=== PATIENT | male | born 1985 | race African-American/Black ===

== ENCOUNTER 2018-04-29 18:43 | Emergency (ER) | payer MEDICAID, OTHER ==
[~2018-04-29] VITALS: Ht 185.4 cm; Wt 83.9 kg
[~2018-04-29 18:43] MED LIST: PREDNISONE20 MG ORAL
[2018-04-29] MEDS ORDERED: ASACOL PO (18:51)
[2018-04-29] MEDS ORDERED: Norco 5mg/325mg tab ORAL ONE (19:00)
[2018-04-29] MEDS ORDERED: Lidocaine 1% Plain 30 ml INJ ONE (19:00)
[2018-04-29] MEDS ORDERED: Bacitracin Oint UD TOPIC ONE (19:00)
--- NOTE | 2018-04-29 19:16 | Emergency Room Report ---
History of Present Illness General Chief Complaint: General Complaint Source: Patient Present Illness HPI 32-year-old male patient presents ER complaining of right big toe pain. Reports he dropped a TV on his foot forward scope. Reports was previously seen by and had x-ray performed, states there is no fracture at that time. Reports informed him that toenail would fall off on its own eventually, but if pain increased reports to ER to have them remove the toenail. Patient requesting toenail to be removed. Denies pain with ambulation. Patient also requesting cough for the past 3 days. Denies history of smoking, states he interacts with people who smoke regularly. Reports sputum and cough, denies hemoptysis. Denies fever. Denies other acute symptoms. Denies chest pain, shortness of breath, abdominal pain. Allergies: Coded Allergies: IODINE (Verified Allergy, Mild, 06/06/15) SHELLFISH DERIVED (Verified Allergy, Mild, 06/06/15) Patient History Past Medical History: see triage record Reviewed Nursing Documentation: PMH: Agreed; PSxH: Agreed Nursing Documentation-PMH Past Medical History: No History, Except For Hx Gastrointestinal Problems: Yes - Crohn's Review of Systems All Other Systems: negative except mentioned in HPI Physical Exam Vital Signs Date Time Temp Pulse Resp B/P (MAP) Pulse Ox O2 Delivery O2 Flow Rate FiO2 04/29/18 18:46 98.4 72 17 142/87 97 Room Air 98.4 Sp02 EP Interpretation: reviewed, normal General Appearance: well appearing, no apparent distress, alert, GCS 15, non- toxic Head: normocephalic, atraumatic Eyes: bilateral eye normal inspection, bilateral eye PERRL ENT: hearing grossly normal, normal pharynx, no angioedema, normal voice, uvula midline, moist mucus membranes Neck: full range of motion Respiratory: lungs clear, normal breath sounds, no rhonchi, no respiratory distress, no accessory muscle use, no wheezing, speaking full sentences Cardiovascular #1: regular rate, rhythm, no edema Cardiovascular #2: 2+ dorsalis pedis (R), 2+ dorsalis pedis (L) Musculoskeletal: back normal, gait/station normal, normal range of motion, non- tender, other - right big toe: partial nail avulsion, no nail bed damage; no swelling or erythema, tender Neurologic: alert, oriented x3, responsive, motor strength/tone normal, sensory intact Procedures Additional Procedure Procedure Narrative Toe nail removal: Patient provided verbal consent for procedure. Right toenail removal. toenail pulse, attached on medial border. Area cleaned and prepped with Betadine. Digital block performed with lidocaine without epinephrine. Toenail removed with hemostat. Toenail bed cleaned. Nail bed covered with bacitracin, Xeroform and sterile dressing. Patient tolerated procedure well without difficulty. no complications. Medical Decision Making PA Attestation Dr. Beasley is my supervising Physician whom patient management has been discussed with. Diagnostic Impression: Primary Impression: Nail avulsion, toe Additional Impression: Cough ER Course Pt presents to ED c/o toe pain and cough. DDX considered but are not limited to subungual hematoma, nail avulsion, paronychia, viral URI, pneumonia, strep throat, rhinitis, sinusitis, otitis media. Low suspicion for pneumonia, will not order CXR at this time. VITAL SIGNS are WNL, patient is afebrile. ER COURSE: Provided with [employer]. CURES reviewed, no recent rx provided to patient. digital block performed of right big toe, area cleaned and prepped with Betadine , nail removed, no laceration of nail bed noted. . Patient tolerated this procedure well without difficulty. patient dressed with bacitracin, Xeroform and sterile gauze dressing. Patient able ambulate without difficulty. Instructed patient to keep area clean and dry. Provide patient with contact information for barber apprentice Dr. Jameson, instructed to follow-up in one week. provide patient with antibiotic treatment to prevent infection. keep foot elevated, wear open toe shoes. Lungs clear to auscultation, no wheezes, rhonci or rales. Likely viral etiology of symptoms. Symptomatic treatment. Followup with PCP for further treatment and/or referral as needed. DISCHARGE: -Rx given for Tylenol/Acetaminophen -Rx given for Promethazine with codeine syrup for cough sx. -Rx provided for Keflex At this time pt is stable for d/c to home. Patient is resting comfortably, in no acute distress, nontoxic appearing. Patient to take medications as instructed Will provide with patient care instructions and any necessary prescriptions. Care plan and follow-up instructions provided. Patient instructed to follow-up with primary care provider in 3 - 5 days. Patient questions asked and answered. Patient reports understanding and agreement to treatment plan. ER precautions given. Patient instructed to return to ER immediately for any new or worsening of symptoms including but not limited to increasing SOB, persistent fever, intractable vomiting. - Please note that this Emergency Department Report was dictated using [employer] project manager technology software, occasionally this can lead to erroneous entry secondary to interpretation by the dictation equipment. Last Vital Signs Date Time Temp Pulse Resp B/P (MAP) Pulse Ox O2 Delivery O2 Flow Rate FiO2 04/29/18 18:46 98.4 72 17 142/87 97 Room Air 98.4 Disposition: HOME, SELF-CARE Condition: Stable Scripts Acetaminophen* (TYLENOL EXTRA STRENGTH*) 500 Mg Tablet 500 MG ORAL Q8H PRN for Prn Headache/Temp > 101, #30 TAB 0 Refills Prov: Abner Oleary 04/29/18 Codeine/Promethazine Hcl* (PROMETHAZINE-CODEINE SYRUP*) 118 Ml Syrup 5 ML ORAL Q6H PRN for For Cough, #118 ML 0 Refills Prov: Abner Oleary 04/29/18 Cephalexin* (KEFLEX*) 500 Mg Capsule 500 MG ORAL EVERY 12 HOURS, #14 CAP 0 Refills Prov: Abner Oleary 04/29/18 [facility],REFERRING (PCP) Patient Instructions: Cough, Adult, [id number], Nail Avulsion Additional Instructions: Followup with primary care provider in 3 -5 days. Follow-up with barber apprentice in 1 week. Keep wound clean and dry. Take medications as directed. Patient questions asked and answered. ER precautions given, patient instructed to return to ER immediately for any new or worsening of symptoms including but not limited to pain worsening, increased redness, pus is present, red streak develops, fever. Abner Oleary Apr 29, 2018 19:16
[2018-04-29] MEDS ORDERED: CEPHALEXIN500 MG ORAL (20:08)
[2018-04-29] MEDS ORDERED: PROMETHAZINE-C118 M1 ORAL (20:08)
[2018-04-29] MEDS ORDERED: TYLENOL EXTRA500 MG ORAL (20:08)
[2018-04-29 20:30] VITALS: BP 138/82
[2018-04-29 20:35] VITALS: BP 138/82
== END 2018-04-29 20:35 | disposition home or self-care (01) ==
LOC: EMR 19:04
DX: S91.201A Unspecified open wound of right great toe with damage to nail, initial encounter (principal); W20.8XXA Other cause of strike by thrown, projected or falling object, initial encounter; Y92.9 Unspecified place or not applicable; R05 Cough; Z91.041 Radiographic dye allergy status; Z91.013 Allergy to seafood
CPT/HCPCS: 11730; 99284; Z7502

== ENCOUNTER 2020-04-20 12:45 | Emergency (ER) | payer MEDICAID, OTHER ==
[~2020-04-20] VITALS: Ht 185.4 cm; Wt 83.9 kg
[~2020-04-20 12:45] MED LIST changes: +ASACOL PO; +CEPHALEXIN500 MG ORAL; +PROMETHAZINE-C118 M1 ORAL; +TYLENOL EXTRA500 MG ORAL
[2020-04-20 13:10] VITALS: BP 113/65
--- NOTE | 2020-04-20 13:10 | NUR ---
ED Nurse Note: Patient walked into ED from home c/o 05/20 throbbing headache x 3 days. Patient states he had a brain tumor that was surgically removed when he was younger and that he is concerned because the headache is near the old tumor sites in his head. Patient also feel intermittent nausea and difficulty sleeping d/t throbbing sensation when he lays flat. Patient AxO x 4, lights dimmed for comfort.
[2020-04-20] MEDS ORDERED: SUMAtriptan 6mg/0.5ml Inj SUBQ PRN (13:30)
[2020-04-20] MEDS ORDERED: Excedrin Migraine tab ORAL ONE (13:30)
--- NOTE | 2020-04-20 15:08 | Emergency Room Report ---
History of Present Illness General Chief Complaint: Headache Source: Patient Present Illness HPI 34-year-old male with history of migraine headache as well as left temporal and frontal brain tumor here complaining of sudden onset of a 1010 headache left temporal and frontal lobe that started last night. Patient also complains of photophobia, nausea and vomiting. Denies dizziness, having any aura, chest pain , shortness of breath, URI symptoms. Denies tobacco smoke, drug use, alcohol intake. Reports that he had a brain tumor at age 17 however has not seen his neurologist since he turned 22. Denies any recent head injury. Denies recurrences of headache. Patient is neurovascularly intact. No unilateral generalized weakness noted. Allergies: Coded Allergies: IODINE (Verified Allergy, Mild, 06/06/15) SHELLFISH DERIVED (Verified Allergy, Mild, 06/06/15) COVID-19 Screening Contact w/high risk pt: No Recent Travel to affected area: No Experienced COVID-19 symptoms?: No COVID-19 Testing performed TUBE DRAWING SUPERVISOR: No Patient History Past Medical History: see triage record Past Surgical History: none Pertinent Family History: none Immunizations: UTD Reviewed Nursing Documentation: PMH: Agreed; PSxH: Agreed Nursing Documentation-PMH Past Medical History: No History, Except For Hx Gastrointestinal Problems: Yes - Crohn's disease Review of Systems All Other Systems: negative except mentioned in HPI Physical Exam Vital Signs Date Time Temp Pulse Resp B/P (MAP) Pulse Ox O2 Delivery O2 Flow Rate FiO2 04/20/20 13:00 98.1 67 14 113/65 (81) 96 Room Air Sp02 EP Interpretation: reviewed, normal General Appearance: alert, non-toxic, mild distress Head: normocephalic, atraumatic Eyes: bilateral eye normal inspection, bilateral eye PERRL ENT: hearing grossly normal, normal pharynx, no angioedema, normal voice Neck: full range of motion, supple/symm/no masses Respiratory: chest non-tender, lungs clear, normal breath sounds, speaking full sentences Cardiovascular #1: regular rate, rhythm, no edema, no murmur Cardiovascular #2: 2+ carotid (R), 2+ carotid (L) Gastrointestinal: normal bowel sounds, non tender, soft, non-distended, no guarding, no rebound Rectal: deferred Genitourinary: no CVA tenderness Musculoskeletal: back normal, no calf tenderness Neurologic: alert, motor strength/tone normal, oriented x3, sensory intact, responsive, speech normal Psychiatric: judgement/insight normal, memory normal, mood/affect normal, no suicidal/homicidal ideation Skin: no rash Lymphatic: no adenopathy Medical Decision Making PA Attestation All diagnoses and treatment plans were reviewed and discussed with my supervising physician Dr. Gifford Diagnostic Impression: Primary Impression: Migraine headache ER Course 34-year-old male with history of migraine headache as well as left temporal and frontal brain tumor here complaining of sudden onset of a 1010 headache left temporal and frontal lobe that started last night. Patient also complains of photophobia, nausea and vomiting. Denies dizziness, having any aura, chest pain , shortness of breath, URI symptoms. Denies tobacco smoke, drug use, alcohol intake. Reports that he had a brain tumor at age 17 however has not seen his neurologist since he turned 22. Denies any recent head injury. Denies recurrences of headache. Patient is neurovascularly intact. No unilateral generalized weakness noted. Ddx considered but are not limited to: Migraine headache with aura, migraine headache without aura, tension headache, cluster headache, TBI, subarachnoid hemorrhage, brain tumor, head contusion, cerebral hematoma Vital signs: are WNL, pt. is afebrile H&PE are most consistent with:Migraine headache ORDERS: Head CT no contrast, sumatriptan, Zofran, Excedrin ER intervention: Sumatriptan, Excederin, Zofran DISCHARGE: At this time pt. is stable for d/c to home. Will provide printed patient care instructions, and any necessary prescriptions. Care plan and follow up instructions have been discussed with the patient prior to discharge. Patient follow-up primary doctor for referral to neurologist, take medication as directed, if worsening symptoms return to the emergency room CT/MRI/US Diagnostic Results CT/MRI/US Diagnostic Results : Imaging Test Ordered: Head CT no contrast Impression No intracranial bleed or mass noted Last Vital Signs Date Time Temp Pulse Resp B/P (MAP) Pulse Ox O2 Delivery O2 Flow Rate FiO2 04/20/20 13:10 98.1 81 14 113/65 96 Room Air Disposition: HOME, SELF-CARE Condition: Stable Scripts Ondansetron (Zofran) 4 Mg Tablet 4 MG ORAL Q6H PRN for Nausea & Vomiting, #14 TAB Prov: Sahelimoghavami,Nahal PA 04/20/20 Aspirin/Acetaminophen/Caffeine (EXCEDRIN EXTRA STRENGTH CAPLET) 1 Each Tablet 1 EACH PO DAILY, #10 TAB Prov: Josué Bacon 04/20/20 Sumatriptan Succinate* (IMITREX*) 50 Mg Tablet 25 MG ORAL DAILY PRN MIGRAINE for 7 Days, #7 TAB Prov: Josué Bacon 04/20/20 Referrals: [facility],REFERRING (PCP) Patient Instructions: Migraine Headache Additional Instructions: Take medication as directed, follow-up with your primary doctor, follow-up with your neurologist as well for further evaluation. If worsening symptoms return to the emergency room Josué Bacon Apr 20, 2020 15:08
--- NOTE | 2020-04-20 15:10 | Diagnostic Imaging Report ---
Indications: 7 out of 10 throbbing headache for 3 days Technique: Spiral acquisitions obtained through the brain. Angled axial and coronal 5 x 5 mm slices were reconstructed. Total dose length product 1045 mGycm. CTDI vol(s) 53 mGy. Dose reduction achieved using automated exposure control Comparison: None. Findings: No acute intracranial hemorrhage or edema. No mass effect nor midline shift. Normal pardo-white differentiation. Normal size ventricles and extra axial CSF spaces. Visualized orbits and sinuses are unremarkable. The mastoids are clear. The calvarium is intact Note that patient reports history of prior surgical brain tumor removal. There is questionably some low-attenuation of the parasagittal frontal lobe extending from the roof of the corpus callosum to the vertex, although suspect that this is due to beam hardening artifact. No other encephalomalacia is evident. No cranial defect There is very slight nonspecific irregularity of the posterior aspect of the sella turcica. Impression: Negative for acute intracranial bleed or mass effect. Findings as noted The CT scanner at [facility] is accredited by the [employer] and the scans are performed using protocols designed to limit radiation exposure to as low as reasonably achievable to attain images of sufficient resolution adequate for diagnostic evaluation.
[2020-04-20] MEDS ORDERED: IMITREX50 MG ORAL (15:20)
[2020-04-20] MEDS ORDERED: ZOFRAN4 M1 ORAL (15:20)
[2020-04-20] MEDS ORDERED: EXCEDRIN EXTRA1 EAC1 PO (15:20)
[2020-04-20 15:50] VITALS: BP 113/65
--- NOTE | 2020-04-20 15:50 | NUR ---
ER DISCHARGE NOTE: Patient is cleared to be discharged per ERMD, pt is aox4, on room air, with stable vital signs. pt was given dc and prescription instructions, pt was able to verbalize understanding, pt id band removed. pt is able to ambulate with steady gait. pt took all belongings. Addendum: 04/20/20 at 1601 by BRYAN DC time is actually 1525, not 1550
== END 2020-04-20 15:25 | disposition home or self-care (01) ==
LOC: EMR 13:11
DX: G43.909 Migraine, unspecified, not intractable, without status migrainosus (principal); K50.90 Crohn's disease, unspecified, without complications; Z91.041 Radiographic dye allergy status; Z91.013 Allergy to seafood
CPT/HCPCS: 70450; 96372; J2405; J3030; Z7502; 99284

== ENCOUNTER 2020-07-29 18:06 | Emergency (ER) | payer OTHER ==
[~2020-07-29] VITALS: Ht 185.4 cm; Wt 83.9 kg
[~2020-07-29 18:06] MED LIST changes: +EXCEDRIN EXTRA1 EAC1 PO; +IMITREX50 MG ORAL; +ZOFRAN4 M1 ORAL
[2020-07-29] MEDS ORDERED: Ketorolac 30mg Inj IV ONE (18:30)
[2020-07-29] MEDS ORDERED: Morphine Sulfate 4mg/ml Inj (IV USE ONLY) IVP ONE (18:45)
--- NOTE | 2020-07-29 18:46 | Emergency Room Report ---
History of Present Illness General Chief Complaint: Nausea, Vomiting, and Diarrhea Source: Patient Present Illness HPI 35-year-old male with a history of Crohn's disease here with abdominal pain and vomiting. Patient says that for the past 48 hours he has been having severe epigastric abdominal pain and vomiting multiple times. Says that there was a small amount of blood tingeing the vomit. Has not noticed any bloody stools or melena. Pain is sharp in nature, located in the epigastrium, radiates diffusely. No fevers, chills, chest pain, palpitations, shortness of breath, back pain, diarrhea, dysuria. Allergies: Coded Allergies: IODINE (Verified Allergy, Mild, 06/06/15) SHELLFISH DERIVED (Verified Allergy, Mild, 06/06/15) COVID-19 Screening Contact w/high risk pt: No Recent Travel to affected area: No Experienced COVID-19 symptoms?: No COVID-19 Testing performed BIT GATHERER: No Nursing Documentation-PMH Past Medical History: No History, Except For Hx Gastrointestinal Problems: Yes - Crohn's disease Review of Systems All Other Systems: negative except mentioned in HPI Physical Exam Vital Signs Date Time Temp Pulse Resp B/P (MAP) Pulse Ox O2 Delivery O2 Flow Rate FiO2 07/29/20 18:11 97.9 60 18 127/72 (90) 98 Room Air Sp02 EP Interpretation: reviewed, normal General Appearance: no apparent distress, alert, GCS 15, non-toxic Head: normocephalic, atraumatic Eyes: bilateral eye normal inspection, bilateral eye PERRL ENT: hearing grossly normal, normal pharynx, no angioedema, normal voice Neck: full range of motion, supple/symm/no masses Respiratory: chest non-tender, lungs clear, normal breath sounds, speaking full sentences Cardiovascular #1: regular rate, rhythm, no edema Cardiovascular #2: 2+ carotid (R), 2+ carotid (L), 2+ radial (R), 2+ radial (L), 2+ dorsalis pedis (R), 2+ dorsalis pedis (L) Gastrointestinal: normal bowel sounds, soft, non-distended, no rebound, other - Epigastric abdominal pain. Mild pain on palpation diffusely but worse in the epigastrium. Mild guarding. No rebound tenderness. No Rovsing or Rouse sign Rectal: deferred Genitourinary: normal inspection, no CVA tenderness Musculoskeletal: back normal, normal range of motion, calf tenderness, gait/station normal, non-tender Neurologic: alert, motor strength/tone normal, oriented x3, sensory intact, responsive, speech normal Psychiatric: judgement/insight normal, memory normal, mood/affect normal, no suicidal/homicidal ideation Reflexes: 3+ bicep (R), 3+ bicep (L), 3+ tricep (R), 3+ tricep (L), 3+ knee (R), 3+ knee (L) Lymphatic: no adenopathy Medical Decision Making Diagnostic Impression: Primary Impression: Abdominal pain Additional Impression: Crohn disease ER Course Laboratory Tests Test 07/29/20 18:32 White Blood Count 6.5 K/UL (4.8-10.8) Red Blood Count 5.05 M/UL (4.70-6.10) Hemoglobin 16.2 G/DL (14.2-18.0) Hematocrit 50.1 % (42.0-52.0) Mean Corpuscular Volume 99 FL (80-99) Mean Corpuscular Hemoglobin 32.0 PG (27.0-31.0) H Mean Corpuscular Hemoglobin Concent 32.3 G/DL (32.0-36.0) Red Cell Distribution Width 12.2 % (11.6-14.8) Platelet Count 185 K/UL (150-450) Mean Platelet Volume 6.3 FL (6.5-10.1) L Neutrophils (%) (Auto) 78.7 % (45.0-75.0) H Lymphocytes (%) (Auto) 16.4 % (20.0-45.0) L Monocytes (%) (Auto) 4.0 % (1.0-10.0) Eosinophils (%) (Auto) 0.1 % (0.0-3.0) Basophils (%) (Auto) 0.8 % (0.0-2.0) Sodium Level 138 MMOL/L (136-145) Potassium Level 3.9 MMOL/L (3.5-5.1) Chloride Level 102 MMOL/L (98-107) Carbon Dioxide Level 25 MMOL/L (21-32) Anion Gap 11 mmol/L (5-15) Blood Urea Nitrogen 16 mg/dL (7-18) Creatinine 1.1 MG/DL (0.55-1.30) Estimated Glomerular Filtration Rate > 60 mL/min (>60) Glucose Level 107 MG/DL (74-106) H Calcium Level 9.5 MG/DL (8.5-10.1) Total Bilirubin 0.5 MG/DL (0.2-1.0) Aspartate Amino Transferase (AST) 24 U/L (15-37) Alanine Aminotransferase (ALT) 23 U/L (12-78) Alkaline Phosphatase 59 U/L (46-116) Total Protein 8.3 G/DL (6.4-8.2) H Albumin 4.5 G/DL (3.4-5.0) Globulin 3.8 g/dL Albumin/Globulin Ratio 1.2 (1.0-2.7) Lipase 67 U/L (73-393) L CT abd pel: IMPRESSION: 1. Study limited due to lack of IV contrast. 2. Nondistended stomach with possible circumferential wall thickening could represent gastritis in the proper context. Alternatively, this could be due to nondistention. 3. Liquid large bowel contents could be incidental or could represent an infectious or inflammatory colitis or enterocolitis in the proper context. 4. Gallbladder sludge without findings to suggest acute cholecystitis. 5. Bilateral likely benign renal findings above of likely no acute clinical significance. 6. Consider outpatient MRI kidney to further characterize renal findings are felt to alter clinical management. 35-year-old male here with abdominal pain. Patient has a history of Crohn's disease. He was afebrile and otherwise had normal vital signs in the emergency department. He was given 1 L of IV normal saline, morphine, Toradol with good resolution of his pain. Labs were largely unremarkable and CT abdomen pelvis were normal. However we were unable to give IV contrast because the patient said that he "had anaphylaxis" from IV contrast in the past. However patient had a benign abdomen and there is low risk at this point for serious complication such as abscess, perforation, other surgical cause of his abdominal pain. He was given information to follow-up with his primary care provider and says that he will see his nipping machine operator. Was given prescription for Zofran, Bentyl and return precautions. Discharged in stable condition. Last Vital Signs Date Time Temp Pulse Resp B/P (MAP) Pulse Ox O2 Delivery O2 Flow Rate FiO2 9/18/20 18:11 97.9 60 18 127/72 (90) 98 Room Air Scripts Ibuprofen* (MOTRIN*) 600 Mg Tablet 600 MG ORAL Q6H PRN for FOR PAIN, #20 TAB 0 Refills Prov: Red Almeida M.D. 07/29/20 Dicyclomine Hcl* (DICYCLOMINE HCL*) 10 Mg Capsule 10 MG ORAL TID, #10 CAP Prov: Red Almeida M.D. 07/29/20 Ondansetron Odt* (ZOFRAN ODT*) 8 Mg Tab.rapdis 8 MG ORAL Q6H PRN for Nausea & Vomiting, #12 TAB Prov: Red Almeida M.D. 07/29/20 Red Almeida M.D. Jul 29, 2020 18:46
[2020-07-29 18:50] VITALS: BP 122/71
[2020-07-29 18:56] LABS: BASOPHILS % (AUTO) 0.8 % (0.0-2.0); EOSINOPHILS % (AUTO) 0.1 % (0.0-3.0); HEMATOCRIT 50.1 % (42.0-52.0); HEMOGLOBIN 16.2 G/DL (14.2-18.0); LYMPHOCYTES % (AUTO) 16.4 % (20.0-45.0); MEAN CORPUSCULAR VOLUME 99 FL (80-99); NEUTROPHILS % (AUTO) 78.7 % (45.0-75.0); PLATELET COUNT 185 K/UL (150-450); RED BLOOD COUNT 5.05 M/UL (4.70-6.10); RED CELL DISTRIBUTION WIDTH 12.2 % (11.6-14.8); WHITE BLOOD COUNT 6.5 K/UL (4.8-10.8)
[2020-07-29 19:24] LABS: ANION GAP 11 mmol/L (5-15); BLOOD UREA NITROGEN 16 mg/dL (7-18); CALCIUM 9.5 MG/DL (8.5-10.1); CARBON DIOXIDE 25 MMOL/L (21-32); CHLORIDE 102 MMOL/L (98-107); CREATININE 1.1 MG/DL (0.55-1.30); POTASSIUM 3.9 MMOL/L (3.5-5.1); SODIUM 138 MMOL/L (136-145)
--- NOTE | 2020-07-29 19:24 | Diagnostic Imaging Report ---
EXAM: CT Abdomen and Pelvis Without Intravenous Contrast CLINICAL HISTORY: PAIN TECHNIQUE: Axial computed tomography images of the abdomen and pelvis without intravenous contrast. CTDI is 4.9 mGy and DLP is 242.5 mGy-cm. One or more of the following dose reduction techniques were used: automated exposure control, adjustment of the mA and/or kV according to patient size, use of iterative reconstruction technique. Coronal and sagittal reformatted images were created and reviewed. COMPARISON: No relevant prior studies available. FINDINGS: Limitations: Study limited due to lack of IV contrast. Lung bases: Unremarkable. No mass. No consolidation. ABDOMEN: Liver: Unremarkable. Gallbladder and bile ducts: Gallbladder sludge without findings to suggest acute cholecystitis. No ductal dilation. Pancreas: Unremarkable. No ductal dilation. Spleen: Unremarkable. No splenomegaly. Adrenals: Unremarkable. No mass. Kidneys and ureters: Left renal superior pole 2 cm calcification of uncertain etiology. Punctate additional left nonobstructing nephrolith. Small right renal superior pole 1.7 cm cyst with peripheral punctate calcification, or small calyceal diverticulum requiring no additional follow-up. Stomach and bowel: Nondistended stomach with possible circumferential wall thickening could represent gastritis in the proper context. Alternatively, this could be due to nondistention. Liquid large bowel contents could be incidental or could represent an infectious or inflammatory colitis or enterocolitis in the proper context. PELVIS: Appendix: No findings to suggest acute appendicitis. Bladder: Unremarkable. No stones. Reproductive: Unremarkable as visualized. ABDOMEN and PELVIS: Intraperitoneal space: Unremarkable. No free air. No significant fluid collection. Bones/joints: No acute fracture. No dislocation. Soft tissues: Unremarkable. Vasculature: Unremarkable. No abdominal aortic aneurysm. Lymph nodes: Unremarkable. No enlarged lymph nodes. IMPRESSION: 1. Study limited due to lack of IV contrast. 2. Nondistended stomach with possible circumferential wall thickening could represent gastritis in the proper context. Alternatively, this could be due to nondistention. 3. Liquid large bowel contents could be incidental or could represent an infectious or inflammatory colitis or enterocolitis in the proper context. 4. Gallbladder sludge without findings to suggest acute cholecystitis. 5. Bilateral likely benign renal findings above of likely no acute clinical significance. 6. Consider outpatient MRI kidney to further characterize renal findings are felt to alter clinical management.
[2020-07-29 19:28] LABS: ALANINE AMINOTRANSFERASE 23 U/L (12-78); ALBUMIN 4.5 G/DL (3.4-5.0); ALBUMIN/GLOBULIN RATIO 1.2 (1.0-2.7); ALKALINE PHOSPHATASE 59 U/L (46-116); ASPARTATE AMINO TRANSFERASE 24 U/L (15-37); BILIRUBIN,TOTAL 0.5 MG/DL (0.2-1.0)
[2020-07-29 19:30] VITALS: BP 132/82
[2020-07-29] MEDS ORDERED: DICYCLOMINE HCL10 MG ORAL (20:14)
[2020-07-29] MEDS ORDERED: IBUPROFEN600 M1 ORAL (20:14)
[2020-07-29] MEDS ORDERED: ZOFRAN ODT8 MG ORAL (20:14)
[2020-07-29 20:26] VITALS: BP 132/82
== END 2020-07-29 20:25 | disposition home or self-care (01) ==
LOC: EMR 18:40
DX: R10.13 Epigastric pain (principal); K50.90 Crohn's disease, unspecified, without complications; Z91.013 Allergy to seafood; Z88.8 Allergy status to other drugs, medicaments and biological substances
CPT/HCPCS: 36415; 74176; 80053; 83690; 85025; 96361; 96374; 96375; J1885; J2270; J2405; J7030; S0028; Z7502; 99284